=== PATIENT | female | born 1940 | race Two or more races ===

== ENCOUNTER 2024-12-01 08:50 | Inpatient (IN) | payer BC, OTHER ==
[~2024-12-01] VITALS: Ht 170.2 cm; Wt 64.4 kg
--- NOTE | 2024-12-01 09:24 | ED.PDOC ---
HPI (NEURO) HPI Comments 84 y/o F, presents to the ED for CC of right sided weakness. Patient states, she has been experiencing right sided weakness x5days. 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 Patient denies blurred vision, double vision, numbness, or difficulty speaking. No other symptoms or modifying factors are present at this time. Chief Complaint: Right Sided Weakness Time Seen by MD: 09:20 Reviewed Notes: Nurses Notes, Medications, Allergies Information Source: Patient Mode of Arrival: Wheelchair Severity: Moderate Headache Severity: None Timing: Days Duration: Since onset Prehospital treatment: None Weakness Location: (R) Sided Onset: At rest Circumstances: Spontaneous Symptoms: Weakness Before: Normal During: Awake After: Normal Mentation Modifying factors: Nothing Associated Signs and Symptoms: Weakness Past Medical History PAST MEDICAL HISTORY: Denies Surgical History: Denies all surgeries CAVITY PUMP OPERATOR History: Denies all CAVITY PUMP OPERATOR Hx Family History Family History: Unknown Social History Smoker: Cigarettes Alcohol: Denies ETOH Use Drugs: Denies Drug Use Lives In: Home Constitutional: reports: weakness; denies: chills, diaphoresis, fatigue, fever, malaise, sweats, others EENTM: denies: blurred vision, double vision, ear bleeding, ear discharge, ear drainage, ear pain, ear ringing, eye pain, eye redness, hearing loss, mouth pain, mouth swelling, nasal discharge, nose bleeding, nose congestion, nose pain, photophobia, tearing, throat pain, throat swelling, voice changes, others Respiratory: denies: cough, hemoptysis, orthopnea, SOB at rest, shortness of breath, SOB with excertion, stridor, wheezing, others Cardiovascular: denies: chest pain, dizzy spells, diaphoresis, Dyspnea on exertion, edema, irregular heart beat, left arm pain, lightheadedness, palpitations, PND, syncope, others Gastrointestinal: denies: abdomen distended, abdominal pain, blood streaked bowels, constipated, diarrhea, dysphagia, difficulty swallowing, hematemesis, melena, nausea, poor appetite, poor fluid intake, rectal bleeding, rectal pain, vomiting, others Genitourinary: denies: abnormal vagina bleeding, burning, dyspareunia, dysuria, flank pain, frequency, hematuria, incontinence, pain, , vagina discharge, urgency, others Neurological: denies: dizziness, fainting, headache, left sided numbness, left sided weakness, numbness, paresthesia, pre-existing deficit, right sided numbness, right sided weakness, seizure, speech problems, tingling, tremors, weakness, others Musculoskeletal: denies: back pain, gout, joint pain, joint swelling, muscle pain, muscle stiffness, neck pain, others Integumetry: denies: bruises, change in color, change in hair/nails, dryness, laceration, lesions, lumps, rash, wounds, others Allergic/Immunocompromised: denies: Difficulty Healing, Frequent Infections, Hives, Itching, others Hematologic/Lymphatic: denies: anemia, blood clots, easy bleeding, easy bruising, swollen glands, others Endocrine: denies: excessive hunger, excessive sweating, excessive thirst, excessive urination, flushing, intolerance to cold, intolerance to heat, unexplained weight gain, unexplained weight loss, others Psychiatric: denies: anxiety, bipolar disorder, depression, hopeless, panic disorder, schizophrenia, sleepless, suicidal, others All Other Systems: Reviewed and Negative Physical Exam General Appearance: Thin HEENT: Normal ENT Inspection, PERRL/EOMI, Other (No facial asymmetry) Neck: Limited Range of Motion, Non-Tender Respiratory: Lungs Clear, No Respiratory Distress, Normal Breath Sounds Cardiovascular: No Edema, No JVD, No Murmur, No Gallop, Normal Peripheral Pulses, Regular Rate/Rhythm Breast Exam: Deferred Gastrointestinal: No Organomegaly, Non Tender, No Pulsatile Mass, Normal Bowel Sounds, Soft Genitalia: Deferred Pelvic: Deferred Rectal: Deferred Extremities: Decreased range of motion, No calf tenderness, Normal capillary refill, Normal inspection, Non-tender, No pedal edema, Other (Patient feels weak to the left arm happened week ago and still the same) Neurologic: Alert, occupational rehabilitation aide II-XII nml as Tested, Motor Weakness, Normal Affect, Normal Mood, No Sensory Deficits Cerebellar Function: Normal Reflexes: Normal Skin: Dry, Normal Color, Warm Peripheral Pulses: 1+ carotid (R), 1+ carotid (L) Lymphatic: No Adenopathy EKG EKG : Pulse Rate (adult): 61 Hypertrophy: LAE, LVH Was a procedure done? Was a procedure done?: No Differential Diagnosis (SZ) Seizure: CVA/TIA, Hypocalcemia, Hypoglycemia, Hyponatremia, Mass Lesion CVA: TIA General Weakness: Dehydration, Dysrhythmia, Electrolyte imbalance, Hypog lycemia, Hypotension, Hypovolemia, Renal failure, TIA Headache: Migraine, N/A X-Ray, Labs, Meds, VS Vital Signs Date Time Temp Pulse Resp B/P (MAP) Pulse Ox O2 Delivery O2 Flow Rate FiO2 12/01/24 15:36 97.7 60 16 109/52 (71) 97 97.7 12/01/24 12:52 63 16 97 Room Air 12/01/24 12:52 97.8 63 16 176/48 (90) 97 97.8 12/01/24 10:53 61 12/01/24 10:52 97.9 65 16 152/60 (90) 98 97.9 12/01/24 09:12 61 12/01/24 09:07 97.8 79 18 151/71 (97) 97 97.8 Lab Test 12/01/24 11:47 12/01/24 10:44 12/01/24 09:02 Range/Units White Blood Count 2.6 L 4.4-10.8 10^3/uL Red Blood Count 4.14 4.0-5.20 10^6/uL Hemoglobin 13.6 12.2-16.2 g/dL Hematocrit 40.3 36.0-46.0 % Mean Corpuscular Volume 97.4 80.0-100.0 fL Mean Corpuscular Hemoglobin 32.8 H 28.0-32.0 pg Mean Corpuscular Hemoglobin Concent 33.7 32.0-36.0 g/dL Red Cell Distribution Width 13.9 11.8-14.3 % Platelet Count 135 L 140-450 10^3/uL Mean Platelet Volume 9.0 6.9-10.8 fL Neutrophils (%) (Auto) 62.1 37.0-80.0 % Lymphocytes (%) (Auto) 25.6 10.0-50.0 % Monocytes (%) (Auto) 10.4 0.0-12.0 % Eosinophils (%) (Auto) 1.3 0.0-7.0 % Basophils (%) (Auto) 0.6 0.0-2.0 % Neutrophils # (Auto) 1.6 1.6-8.6 10 ^3/uL Lymphocytes # (Auto) 0.7 0.4-5.4 10 ^3/uL Monocytes # (Auto) 0.3 0-1.3 10 ^3/uL Eosinophils # (Auto) 0 0-0.8 10 ^3/uL Basophils # (Auto) 0 0-0.2 10 ^3/uL Nucleated Red Blood Cells 0.3 % Prothrombin Time 10.4 9.3-11.8 sec Prothrombin Time INR 0.98 0.9-1.15 Activated Partial Thromboplast Time 35.9 H 24.5-34.5 SEC D-Dimer, Quantitative 1.14 H 0.0-0.49 mg/L FEU Sodium Level 142 136-145 mmol/L Potassium Level 3.9 3.5-5.1 mmol/L Chloride Level 109 H 98-107 mmol/L Carbon Dioxide Level 27 20-31 mmol/L Anion Gap 6 5-15 Blood Urea Nitrogen 9 9-23 mg/dL Creatinine 0.71 0.550-1.02 mg/dL Glomerular Filtration Rate Calc 83 >90 mL/min BUN/Creatinine Ratio 12.7 10.0-20.0 Serum Glucose 90 74-106 mg/dL Calcium Level 10.1 8.7-10.4 mg/dL Magnesium Level 2.0 1.6-2.6 mg/dL Total Bilirubin 0.5 0.2-1.0 mg/dL Aspartate Amino Transferase (AST) 24 13-40 U/L Alanine Aminotransferase (ALT) < 9 7-40 U/L Alkaline Phosphatase 73 46-116 U/L Troponin I High Sensitivity 10 </=34 ng/L Total Protein 7.3 5.7-8.2 g/dL Albumin 4.7 3.2-4.8 g/dL Urine Color Light-yellow Yellow Urine Clarity Clear Clear Urine pH 5.0 5.0-9.0 Urine Specific [place] 1.018 1.001-1.035 Urine Protein Negative Negative Urine Ketones Negative Negative Urine Blood 1+ H Negative /uL Urine Nitrite Negative Negative Urine Bilirubin Negative Negative Urine Urobilinogen Normal Negative mg/dL Urine Leukocyte Esterase 2+ Negative /uL Urine RBC 7 0 - 4 /hpf Urine Microscopic WBC 12 H 0-5 /HPF Urine Squamous Epithelial Cells Few <5 /hpf Urine Bacteria Few H None Seen /hpf Urine Mucus Few None Seen Urine Glucose Normal Normal mg/dL POC Glucose 100 70-106 mg/dl [place] [address] Ph: [phone] DIAGNOSTIC IMAGING Diagnostic Imaging Report : [id number] Signed PATIENT: ARNOLDO STERN ACCT: [id number] UNIT: [id number] : 1940 LOC: ER ROOM / BED: / AGE / SEX: 84 / F ADM STATUS: REG ER SERVICE 1030 ORDERING PHYSICIAN: AGUSTÍN HUGHES MD PROCEDURE(s): CXR2 - CHEST TWO VIEWS ROUTINE REASON: tia ORDER NUMBER(s): [id number], ACCESSION NUMBER(s): [id number] EXAM: XY CHEST TWO VIEWS ROUTINE CLINICAL HISTORY: Pain COMPARISON: None TECHNIQUE: Frontal and lateral view of the chest was obtained FINDINGS: Lines and Tubes: None Lungs: No focal consolidation. Pleura: No effusion. No pneumothorax. Cardiomediastinal contours: Unremarkable. Atherosclerotic vascular calcifications of the thoracic aorta are noted. Bones: No acute osseous abnormality. IMPRESSION: No acute cardiopulmonary disease. ATED BY: CLAYTON GARRISON MD DICTATED DATE/TIME: 12/01/24 105 SIGNED BY: CLAYTON GARRISON MD SIGNED DATE/TIME: 12/01/24 1058 CC: [place] [address] Ph: [phone] DIAGNOSTIC IMAGING Diagnostic Imaging Report : [id number] Signed PATIENT: ARNOLDO STERN ACCT: [id number] UNIT: [id number] : 1940 LOC: ER ROOM / BED: / AGE / SEX: 84 / F ADM STATUS: REG ER SERVICE 1030 ORDERING PHYSICIAN: AGUSTÍN HUGHES MD PROCEDURE(s): HWOCT - HEAD WITHOUT CONTRAST REASON: tia ORDER NUMBER(s): [id number], ACCESSION NUMBER(s): [id number] CT HEAD WITHOUT CONTRAST INDICATION: tia EXAM DATE: 12/01/2024 10:33 AM COMPARISON: None RADIATION DOSE: CTDIvol: 51.9 mGy, DLP: 919.18 mGy*cm PROCEDURE: CT scans of the head were obtained from the vertex to the skull base. Sagittal and coronal reconstructions were provided. All CT scans at this medical facility are performed using dose modulation techniques as appropriate to a performed exam including the following: Automated exposure control was utilized; adjustment of the MA and/or KV according to patient size; and use of iterative reconstruction technique. FINDINGS: Mild hypodensity in the left occipital/parietal lobe could be infarct. There is sulcal and ventricular prominence. The brain otherwise shows normal morphology and contreras-white matter differentiation, without intracranial hemorrhage, extra-axial fluid collection, mass effect or acute large vessel infarct. The ventricles are normal in size. The basal cisterns are patent. The skull and visible facial bones are intact. The paranasal sinuses, mastoid air cells and middle ear cavities are well-aerated. The soft tissues of the scalp are unremarkable. IMPRESSION: Mild hypodensity in the left occipital/parietal lobe could be subacute vs chronic infarct. Consider brain MRI for further evaluation. Critical Result: Infarct Findings discussed with beatrice giron at 12/01/2024 11:13 AM and acknowledged receipt and understanding of the findings. ATED BY: JUSTIN COLON MD DICTATED DATE/TIME: 12/01/24 1113 SIGNED BY: JUSTIN COLON MD SIGNED DATE/TIME: 12/01/24 1113 CC: X-Ray, Labs, Meds, VS Comment 84-year-old female presented to the emergency department because of right-sided weakness for the past five days and also confused Blood pressure 134/78 Chest x-ray is negative The CT of the head shows subacute fracture problem probably The EKG shows normal sinus rhythm at 61+ left atrial enlargement and left ventricular hypertrophy CBC 2600 with 62.1% and normal H&H Urine shows 1+ blood 2+ leukocyte and bacteria D-dimer slightly elevated 1.14 INR 0.96 CMP is normal Troponin 10 Magnesium 2.0 patient will be admitted to Dr. Arora Time of 1ST Reevaluation: 09:50 Reevaluation 1ST: Unchanged Patient Education/Counseling: Diagnosis, Treatment Family Education/Counseling: No Family Present Departure 1 Departure Time of Disposition: 14:30 Impression: Primary Impression: TIA (transient ischemic attack) Disposition: ADMITTED INPATIENT Admit to: Tele Condition: Serious Critical Care Note Critical Care Time?: No Stability Stability form required: No Heart Score Heart Score: Heart Score Response (Comments) Value History N/A 0 EKG N/A 0 Age N/A 0 Risk Factors N/A 0 Troponin N/A 0 Total 0 I personally scribed for AGUSTÍN HUGHES MD ([email or web address]) on 12/01/24 at 09:24. Electronically submitted by Dinorah Fitzgerald ([email or web address]). I personally scribed for AGUSTÍN HUGHES MD ([email or web address]) on 12/01/24 at 09:29. Electronically submitted by Dinorah Fitzgerald ([email or web address]). I personally scribed for AGUSTÍN HUGHES MD ([email or web address]) on 12/01/24 at 11:03. Electronically submitted by Dinorah Fitzgerald ([email or web address]). I personally scribed for AGUSTÍN HUGHES MD ([email or web address]) on 12/01/24 at 11:47. Electronically submitted by Dinorah Fitzgerald ([email or web address]). I personally scribed for AGUSTÍN HUGHES MD ([email or web address]) on 12/01/24 at 12:51. Electronically submitted by Dinorah Fitzgerald ([email or web address]). I personally scribed for AGUSTÍN HUGHES MD ([email or web address]) on 12/01/24 at 13:28. Electronically submitted by Dinorah Fitzgerald ([email or web address]). AGUSTÍN HUGHES MD Dec 01, 2024 09:24
--- NOTE | 2024-12-01 09:35 | ECG ---
[facility] Test Date: 2024-12-01 Test Time: 09:12:43 Pat Name: ARNOLDO STERN Department: ER Room: 0215T Gender: F [employer] Station Attendant: : 1940 Requested By: EMERGENCY EMERGENCY Order Number: [id number] Reading MD: Yo Webb Measurements Intervals [place] Rate: 61 P: 82 RI: 123 QRS: 31 QRSD: 82 T: 74 QT: 462 QTc: 466 Interpretive Statements Sinus rhythm Probable left atrial enlargement Probable LVH with secondary repol abnrm Baseline wander in lead(s) V1 Electronically Signed On 12-03-2024 10:21:27 PDT by Yo Webb Please click the below link to view image of tracing.
[2024-12-01] MEDS: SODIUM CHLORIDE 0.9% 1,000 ML IV ONE (10:30)
--- NOTE | 2024-12-01 11:01 | DVH ---
EXAM: XY CHEST TWO VIEWS ROUTINE CLINICAL HISTORY: Pain COMPARISON: None TECHNIQUE: Frontal and lateral view of the chest was obtained FINDINGS: Lines and Tubes: None Lungs: No focal consolidation. Pleura: No effusion. No pneumothorax. Cardiomediastinal contours: Unremarkable. Atherosclerotic vascular calcifications of the thoracic ao rta are noted. Bones: No acute osseous abnormality. IMPRESSION: No acute cardiopulmonary disease.
--- NOTE | 2024-12-01 11:16 | DVH ---
CT HEAD WITHOUT CONTRAST INDICATION: tia EXAM DATE: 12/01/2024 10:33 AM COMPARISON: None RADIATION DOSE: CTDIvol: 51.9 mGy, DLP: 919.18 mGy*cm PROCEDURE: CT scans of the head were obtained from the vertex to the skull base. Sagittal and coronal reconstructions were provided. All CT scans at this medical facility are performed using dose modulation techniques as appropriate t o a performed exam including the following: Automated exposure control was utilized; adjustment of th e MA and/or KV according to patient size; and use of iterative reconstruction technique. FINDINGS: Mild hypodensity in the left occipital/parietal lobe could be infarct. There is sulcal and ventricular prominence. The brain otherwise shows normal morphology and contreras-white matter differenti ation, without intracranial hemorrhage, extra-axial fluid collection, mass effect or acute large vess el infarct. The ventricles are normal in size. The basal cisterns are patent. The skull and visible f acial bones are intact. The paranasal sinuses, mastoid air cells and middle ear cavities are well-aer ated. The soft tissues of the scalp are unremarkable. IMPRESSION: Mild hypodensity in the left occipital/parietal lobe could be subacute vs chronic infarct. Consider b rain MRI for further evaluation. Critical Result: Infarct Findings discussed with beatrice giron at 12/01/2024 11:13 AM and acknowledged receipt and understa nding of the findings.
[2024-12-01 12:04] LABS: Hematocrit 40.3 % (36.0-46.0); Hemoglobin 13.6 g/dL (12.2-16.2); Mean Corpuscular Hemoglobin 32.8 pg (28.0-32.0); Mean Corpuscular Volume 97.4 fL (80.0-100.0); Nucleated Red Blood Cells % 0.3 %
[2024-12-01 12:14] LABS: Urine Protein, UAD Negative (Negative)
[2024-12-01 12:17] LABS: Alanine Aminotransferase < 9 U/L (7-40); Albumin 4.7 g/dL (3.2-4.8); Alkaline Phosphatase 73 U/L (46-116); Anion Gap 6 (5-15); BUN/Creatinine Ratio 12.7 (10.0-20.0); Bilirubin, Total 0.5 mg/dL (0.2-1.0); Blood Urea Nitrogen 9 mg/dL (9-23); Calcium 10.1 mg/dL (8.7-10.4); Carbon Dioxide 27 mmol/L (20-31); Chloride 109 mmol/L (98-107); Glucose 90 mg/dL (74-106); Magnesium 2.0 mg/dL (1.6-2.6); Potassium 3.9 mmol/L (3.5-5.1); Sodium 142 mmol/L (136-145); Total Protein 7.3 g/dL (5.7-8.2)
[2024-12-01 12:18] LABS: INR 0.98 (0.9-1.15); Partial Thromboplastin Time 35.9 SEC (24.5-34.5); Prothrombin Time 10.4 sec (9.3-11.8)
[2024-12-01] MEDS ORDERED: MORPHINE SULFATE INJ 2 MG/ml SYRG IV PRN ×2 (15:45)
[2024-12-01] MEDS ORDERED: HYDROcodone-ACET 5/325MG TAB PO PRN (15:45)
[2024-12-01] MEDS: SODIUM CHLORIDE 0.9% 1,000 ML IV SCH (15:45)
[2024-12-01] MEDS ORDERED: ACETAMINOPHEN 325 MG TAB PO PRN (15:45)
[2024-12-01] MEDS ORDERED: ONDANSETRON HCL 4 MG/2 ML VIAL IV PRN (15:45)
[2024-12-01] MEDS ORDERED: NITROGLYCERIN 0.4 MG SL TAB SL PRN (15:45)
[2024-12-01] MEDS: cefTRIAXone 1GM/50ML D5W 50 ML IV SCH (16:00)
[2024-12-01] MEDS ORDERED: IOHEXOL 350 MG/ML 100ML IJ ONE (16:26)
--- NOTE | 2024-12-01 17:18 | DVH ---
PROCEDURE: MRI BRAIN HEAD WO CONTRAST Indication: cva COMPARISON: CT head from today TECHNIQUE: Multiplanar multisequence images of the brain are obtained. FINDINGS: There is diffusion restriction within the subcortical left frontal, parietal simple and temporal lobe s. There is more pronounced diffusion restriction within the left parietal rocha radiata and finisher cold rolling ior temporal lobe. There are corresponding increased FLAIR / T2 changes. Moderate periventricular and subcortical white matter T2 and FLAIR hyperintense changes. There is no intracranial hemorrhage. No extra-axial fluid collection, mass effect or midline shift. The ventricles are midline and normal in size. The cisterns are patent. Normal intracranial flow voids are preserved. No abnormal susceptibili ty signal. Kkrh-ni-fyivdmva global cerebral volume loss. The sinuses and mastoids are well pneumatized. The visualized orbits are unremarkable. IMPRESSION: Acute infarction involving the left frontal, parietal , occipital and temporal lobes most pronounced within the left parietal lobe. Moderate chronic microvascular ischemic changes. Ibtd-lo-fnyevtfk global cerebral volume loss
[2024-12-01 17:51] VITALS: BP 189/89; PULSE 69; RESP 18; TEMP 97.5; O2SAT 98
[2024-12-01 18:01] VITALS: BP 189/89; PULSE 69; RESP 18; TEMP 97.5; O2SAT 98
[2024-12-01] MEDS ORDERED: CHOL20007 PO (18:48)
[2024-12-01] MEDS ORDERED: DORZ2SOL EACHEYE (18:48)
[2024-12-01] MEDS ORDERED: SIMV20TA20 PO (18:48)
[2024-12-01] MEDS ORDERED: LOSA-534 PO (18:48)
[2024-12-01] MEDS ORDERED: LATA0.008 EACHEYE (18:48)
[2024-12-01 20:00] VITALS: PULSE 97
--- NOTE | 2024-12-01 21:13 | DVH ---
US CAROTID DOPPLER CLINICAL INDICATION: cva TECHNIQUE: Multiple grayscale, color Doppler and spectral Doppler ultrasound images were obtained thr oughout both carotid systems. COMPARISON: None FINDINGS: RIGHT: CCA PSV: 65 cm/s ECA PSV: 86 cm/s ICA PSV: 87 cm/s ICA EDV: 32 cm/s ICA/CCA Ratio: 1.3 Vertebral artery: Patent, antegrade flow. Mild atherosclerotic plaque of the carotid bifurcation. No visible stenosis. Spectral analysis demons trates no hemodynamically significant CCA or ICA stenosis. LEFT: CCA PSV: 51 cm/s ECA PSV: 85 cm/s ICA PSV: 109 cm/s ICA EDV: 33 cm/s ICA/CCA Ratio: 2.1 Vertebral artery: Patent, antegrade flow. Mild atherosclerotic plaque of the carotid bifurcation. No visible stenosis. Spectral analysis demons trates no hemodynamically significant CCA or ICA stenosis. IMPRESSION: No evidence of hemodynamically significant CCA or ICA stenosis.
[2024-12-01 21:21] VITALS: BP 150/60; PULSE 70; RESP 18; TEMP 98.2; O2SAT 97
[2024-12-01] MEDS: ATORVASTATIN 20 MG TAB PO SCH (21:38)
[2024-12-02] VITALS (9 sets, daily range): BP systolic 116–174; BP diastolic 47–69; PULSE 51–79; RESP 16–22; TEMP 96.5–99; O2SAT 96–98
[2024-12-02] MEDS ORDERED: IOHEXOL 350 MG/ML 100ML IJ ONE (00:30)
--- NOTE | 2024-12-02 00:38 | DVHHP2 ---
JUANA QUINONEZ ROCK BREAKER 12/02/24 0038: History of Present Illness Reason for Visit: Right-sided weakness History of Present Illness 84-year-old female with past medical history of hypertension, high cholesterol presents with complaints of right-sided weakness over the previous 5 days. Patient is also endorsing facial numbness. At this time patient states symptoms have improved. At this time patient denies any fevers, chills, visual disturbance, headaches, shortness of breath, chest pain, nausea, vomiting, abdominal pain, dysuria. Cardiovascular: HTN, hyperipidemia Smoke: No ALCOHOL: none Drugs: None Lives: with Family Review of Systems Constitutional: Yes: Weakness; No: Fever, Chills, Sweats, Malaise, Other Eyes: No: Pain, Vision change, Conjunctivae inflammation, Eyelid inflammation, Other, Redness ENT: No: Ear pain, Ear discharge, Nose pain, Nose discharge, Nose congestion, Mouth pain, Mouth swelling, Throat pain, Throat swelling, Other Respiratory: No: Cough, Dry, Shortness of breath, SOB with excertion, Wheezing, Hemoptysis, Pleuritic Pain, Sputum, Wheezing, Other Cardiovascular: No: Chest Pain, Palpitations, Orthopnea, Paroxysmal Noc. Dyspnea, Edema, Lt Headedness, Other Genitourinary: No Dysuria, No Frequency, No Incontinence, No Hematuria, No Retention, No Other Skin: No: Rash, Lesions, Jaundice, Bruising, Other Neurological: Weakness, Numbness; No: Incoordination, Change in speech, Confusion, Seizures, Other Allergies: Coded Allergies: NO KNOWN ALLERGIES (Unverified , 12/01/24) Medications Current Medications Medications Dose Ordered Sig/Brett Route Start Time Stop Time Status Last Admin Dose Admin Sodium Chloride 1,000 ml @ 120 mls/hr Q8H20M IV 12/01/24 15:45 Acetaminophen/ Hydrocodone Bitart 1 tab Q4HP PRN PO 12/01/24 15:45 Ondansetron HCl 4 mg Q4HP PRN IV 12/01/24 15:45 Enoxaparin Sodium 40 mg DAILY SC 12/02/24 10:00 Acetaminophen 650 mg Q6HP PRN PO 12/01/24 15:45 Morphine Sulfate 2 mg Q4HPRN PRN IV 12/01/24 15:45 Nitroglycerin 0.4 mg Q5MINP PRN SL 12/01/24 15:45 Morphine Sulfate 2 mg Q30M PRN IV 12/01/24 15:45 Aspirin 81 mg DAILY PO 12/02/24 10:00 Atorvastatin Calcium 40 mg HS PO 12/01/24 22:00 12/01/24 21:38 40 MG Ceftriaxone Sodium 50 ml @ 100 mls/hr DAILY@09 IV 12/01/24 16:00 Exam Vital Signs Vital Signs Date Time Temp Pulse Resp B/P (MAP) Pulse Ox O2 Delivery O2 Flow Rate FiO2 12/01/24 21:21 98.2 70 18 150/60 (90) 97 98.2 12/01/24 20:00 Room Air* 0 21 General Appearance: Alert, Oriented X3, Cooperative, mild distress HEENT: Atraumatic, PERRLA, EOMI Respiratory: Clear to auscultation, Normal air movement Cardiovascular: Regular rate, Normal S1, Normal S2 Abdominal: Normal bowel sounds, Soft Extremities: No clubbing, No cyanosis, No edema, Normal pulses Skin: No rashes Neuro: Normal speech Psych/Mental Status: Mental status NL, Mood NL Labs/Xrays Labs Test 12/01/24 11:47 12/01/24 10:44 12/01/24 09:02 Range/Units White Blood Count 2.6 L 4.4-10.8 10^3/uL Red Blood Count 4.14 4.0-5.20 10^6/uL Hemoglobin 13.6 12.2-16.2 g/dL Hematocrit 40.3 36.0-46.0 % Mean Corpuscular Volume 97.4 80.0-100.0 fL Mean Corpuscular Hemoglobin 32.8 H 28.0-32.0 pg Mean Corpuscular Hemoglobin Concent 33.7 32.0-36.0 g/dL Red Cell Distribution Width 13.9 11.8-14.3 % Platelet Count 135 L 140-450 10^3/uL Mean Platelet Volume 9.0 6.9-10.8 fL Neutrophils (%) (Auto) 62.1 37.0-80.0 % Lymphocytes (%) (Auto) 25.6 10.0-50.0 % Monocytes (%) (Auto) 10.4 0.0-12.0 % Eosinophils (%) (Auto) 1.3 0.0-7.0 % Basophils (%) (Auto) 0.6 0.0-2.0 % Neutrophils # (Auto) 1.6 1.6-8.6 10 ^3/uL Lymphocytes # (Auto) 0.7 0.4-5.4 10 ^3/uL Monocytes # (Auto) 0.3 0-1.3 10 ^3/uL Eosinophils # (Auto) 0 0-0.8 10 ^3/uL Basophils # (Auto) 0 0-0.2 10 ^3/uL Nucleated Red Blood Cells 0.3 % Prothrombin Time 10.4 9.3-11.8 sec Prothrombin Time INR 0.98 0.9-1.15 Activated Partial Thromboplast Time 35.9 H 24.5-34.5 SEC D-Dimer, Quantitative 1.14 H 0.0-0.49 mg/L FEU Sodium Level 142 136-145 mmol/L Potassium Level 3.9 3.5-5.1 mmol/L Chloride Level 109 H 98-107 mmol/L Carbon Dioxide Level 27 20-31 mmol/L Anion Gap 6 5-15 Blood Urea Nitrogen 9 9-23 mg/dL Creatinine 0.71 0.550-1.02 mg/dL Glomerular Filtration Rate Calc 83 >90 mL/min BUN/Creatinine Ratio 12.7 10.0-20.0 Serum Glucose 90 74-106 mg/dL Calcium Level 10.1 8.7-10.4 mg/dL Magnesium Level 2.0 1.6-2.6 mg/dL Total Bilirubin 0.5 0.2-1.0 mg/dL Aspartate Amino Transferase (AST) 24 13-40 U/L Alanine Aminotransferase (ALT) < 9 7-40 U/L Alkaline Phosphatase 73 46-116 U/L Troponin I High Sensitivity 10 </=34 ng/L Total Protein 7.3 5.7-8.2 g/dL Albumin 4.7 3.2-4.8 g/dL Urine Color Light-yellow Yellow Urine Clarity Clear Clear Urine pH 5.0 5.0-9.0 Urine Specific [place] 1.018 1.001-1.035 Urine Protein Negative Negative Urine Ketones Negative Negative Urine Blood 1+ H Negative /uL Urine Nitrite Negative Negative Urine Bilirubin Negative Negative Urine Urobilinogen Normal Negative mg/dL Urine Leukocyte Esterase 2+ Negative /uL Urine RBC 7 0 - 4 /hpf Urine Microscopic WBC 12 H 0-5 /HPF Urine Squamous Epithelial Cells Few <5 /hpf Urine Bacteria Few H None Seen /hpf Urine Mucus Few None Seen Urine Glucose Normal Normal mg/dL POC Glucose 100 70-106 mg/dl Assessment/Plan Assessment/Plan CVA Elevated D dimer UTI with hematuria Hypertension Plan Admit telemetry Neurology consult. MRI brain. ASA, statin physical therapy evaluation. Occupational therapy evaluation. Cardiology consult. Echocardiogram. CTA chest rule out PE. IVF, IV ABX GI ppx Pepcid / dot ppx lovenox Plan discussed with: Patient Date of Service: Dec 02, 2024 Billing Provider: SYMONE MUHAMMAD MD Common Visit Codes: NOT BILLABLE SYMONE MUHAMMAD MD 12/02/24 1425: Review of Systems Allergies: Coded Allergies: NO KNOWN ALLERGIES (Unverified , 12/01/24) Additional Comments Additional Comments Additional Comments 84-year-old female with a known history of hypertension, dyslipidemia who initially presented to the hospital with a right-sided weakness slurred speech and loss of balance for last five days found to have 1. Acute multi-infarct stroke with slurred speech and loss of balance 2. Urinary tract infection 3. Hypertension 4. Dyslipidemia 5. Elevated D-dimer ruled out pulmonary embolism -aspirin, statin, 2D echo cardiology consult neurology consultation. -we will add Plavix on discharge. JUANA QUINONEZ NP Dec 02, 2024 00:38 SYMONE MUHAMMAD MD Dec 02, 2024 14:25
--- NOTE | 2024-12-02 02:18 | DVH ---
INDICATION: elevated D dimers rule out PE TECHNIQUE: Multidetector CTA of the chest was performed of the chest with 100 cc of intravenous contr ast. PULMONARY ANGIOGRAPHY PROTOCOL was utilized using a bolus-tracking technique centered on the spencer n pulmonary artery. Axial, coronal and sagittal multiplanar and MIP reformats were performed. Radiation Dose Information: CT Dose: CTDI volume is 8.4 mGy. Dose-length product is 694 mGy*cm The dose indicators for CT are the volume Computed Tomography (CT) Dose Index (CTDIvol) and the Dose Length Product (DLP), and are measured in units of mGy and mGy-cm, respectively. These indicators are not patient dose, but values generated from the CT scanner acquisition factors. The report includes radiation exposure data for exposures received during this examination. Comparison: Chest x-ray 12/01/2024 Findings: Cystic nodule of the right thyroid gland. Pulmonary artery appears prominent without focal filling de fect to suggest pulmonary embolus. The thoracic aorta appears normal in caliber and contour. No siza ble pericardial or pleural effusion. Mild emphysematous changes with multiple scattered bilateral 1-2 mm pulmonary nodules. No suspicious nodule. Visualized portions of the upper abdomen demonstrates prominence of the pancreatic duct measuring 3-4 mm, incompletely visualized. IMPRESSION: 1. No evidence of pulmonary embolus. Prominent pulmonary arteries May suggest a degree of pulmonary a rterial hypertension. 2. Mild centrilobular emphysema with multiple bilateral 1-2 mm pulmonary nodules. 3. Prominent pancreatic duct, incompletely imaged and nonspecific. Fleischner Society pulmonary nodule recommendations (2017): Multiple solid nodules <6 mm Low-risk patients: no routine follow-up required High-risk patients: optional CT at 12 months These recommendations do not necessarily apply to women, patients with immunosuppression or a prior history of cancer, patients with multiple nodules that are suspicious for metastasis or infection, or patients with mediastinal lymphadenopathy or pleural effusion in whom cancer is strongly suspected.
[2024-12-02 06:58] LABS: Potassium 3.6 mmol/L (3.5-5.1); Sodium 141 mmol/L (136-145)
[2024-12-02 06:59] LABS: Anion Gap 6 (5-15); Carbon Dioxide 25 mmol/L (20-31)
[2024-12-02 07:00] LABS: Calcium 9.4 mg/dL (8.7-10.4)
[2024-12-02 07:04] LABS: Glucose 79 mg/dL (74-106)
[2024-12-02 07:05] LABS: BUN/Creatinine Ratio 13.6 (10.0-20.0); Blood Urea Nitrogen 8 mg/dL (9-23); Chloride 110 mmol/L (98-107)
[2024-12-02] MEDS: ENOXAPARIN SOD 40 MG/0.4 ML SYRINGE SC SCH (09:59)
--- NOTE | 2024-12-02 14:32 | DVHSR ---
APPROVED REPORT EXAM: Two-dimensional and M-mode echocardiogram with Doppler and color Doppler. Blood Pressure: 146/55 mmHg INDICATION CVA RISK FACTORS Height: 67, Weight: 141 DIMENSIONS LVDd4.9 (3.8-5.7cm)LA (2D)4.2 (1.9-4.0cm)Aortic Root3.5 (2.0-3.7cm) LVDs3.2 (2.5-4.0cm)LA (MM) (1.9-4.0cm)Aortic Cusp Exc1.3 (1.5-2.0cm) EF (%) 64.0 (55-70%)Rt. Atrium3.5 (1.9-4.0cm)Asc. Aorta cm Mitral Valve MitralMitral Stenosis E wave0.66m/sMV Mean GR.mmHg A wave0.59m/sMV Peak GR.71mmHg E/A ratio1.12D MVAcm2 DECEL [id number] 1/2 [id number] IVRTmsDop MVA2.38cm2 Aortic Valve Aortic ValveAortic Stenosis V11.23m/Orestes Mean GR.3mmHg V21.28m/Orestes Peak GR.7mmHg LVOT Diameter1.9 (1.8-2.4cm)Doppler AVA2.72cm2 Tricuspid Valve TR Velocity2.82m/s [id number] Conclusion lvef 55% moderaet LVH aortic sclerosis biatrial enlargement
--- NOTE | 2024-12-02 18:12 | DVHINCON2 ---
Date of service: Dec 02, 2024 History of Present Illness 84-year-old female with past medical history of hypertension, high cholesterol presents with complaints of right-sided weakness over the previous 5 days. P atient is also endorsing facial numbness. At this time patient states symptoms have improved. At this time patient denies any fevers, chills, visual disturbance, headaches, shortness of breath, chest pain, nausea, vomiting, abdominal pain, dysuria. Cardiovascular: HTN, hyperipidemia Smoke: No ALCOHOL: none Drugs: None Lives: with Family Past Medical History reviewed Family History: FH: cancer G8 MOTHER G8 FATHER Allergies: Coded Allergies: NO KNOWN ALLERGIES (Unverified , 12/01/24) Home Meds Reported Medications Simvastatin (Simvastatin) 20 Mg Tab, 20 MG PO HS for 30 Days 12/01/24 Losartan Potassium (Losartan Potassium) 50 Mg Tab, 50 MG PO DAILY for 30 Days, MG 12/01/24 Cholecalciferol (VITAMIN D3) 2,000 Unit Tab, 5000 UNIT PO DAILY, TAB 12/01/24 Dorzolamide Hydrochloride (Dorzolamide HCl) 2 % Alexandrea, 1 % EACHEYE BID, ML 12/01/24 Latanoprost (LATANOPROST) 0.005 % Alexandrea, 1 DROP EACHEYE QPM, #7.5 ML 3 Refills 12/01/24 Current Medications Current Medications Medications (Trade) Dose Ordered Sig/Brett Route PRN Reason Start Time Stop Time Status Last Admin Enoxaparin Sodium (Lovenox) 40 mg DAILY SC 12/02/24 10:00 12/02/24 09:59 Aspirin 81 mg DAILY PO 12/02/24 10:00 12/02/24 09:59 Atorvastatin Calcium (Lipitor) 40 mg HS PO 12/01/24 22:00 12/01/24 21:38 Review of Systems 10 pt ros otherwise negative Vital Signs Vital Signs Date Time Temp Pulse Resp B/P (MAP) Pulse Ox O2 Delivery O2 Flow Rate FiO2 12/02/24 16:47 99.0 66 17 116/56 (76) 96 99.0 12/02/24 08:00 Room Air* 0 21 Physical Exam nad s1 s2 rrr ctab soft nt/nd no edema Labs/Diagnostic Data Labs Test 12/02/24 05:55 12/01/24 11:47 12/01/24 10:44 12/01/24 09:02 Range/Units Sodium Level 141 136-145 mmol/L Potassium Level 3.6 3.5-5.1 mmol/L Chloride Level 110 H 98-107 mmol/L Carbon Dioxide Level 25 20-31 mmol/L Anion Gap 6 5-15 Blood Urea Nitrogen 8 L 9-23 mg/dL Creatinine 0.59 0.550-1.02 mg/dL Glomerular Filtration Rate Calc 88 >90 mL/min BUN/Creatinine Ratio 13.6 10.0-20.0 Serum Glucose 79 74-106 mg/dL Calcium Level 9.4 8.7-10.4 mg/dL White Blood Count 2.6 L 4.4-10.8 10^3/uL Red Blood Count 4.14 4.0-5.20 10^6/uL Hemoglobin 13.6 12.2-16.2 g/dL Hematocrit 40.3 36.0-46.0 % Mean Corpuscular Volume 97.4 80.0-100.0 fL Mean Corpuscular Hemoglobin 32.8 H 28.0-32.0 pg Mean Corpuscular Hemoglobin Concent 33.7 32.0-36.0 g/dL Red Cell Distribution Width 13.9 11.8-14.3 % Platelet Count 135 L 140-450 10^3/uL Mean Platelet Volume 9.0 6.9-10.8 fL Neutrophils (%) (Auto) 62.1 37.0-80.0 % Lymphocytes (%) (Auto) 25.6 10.0-50.0 % Monocytes (%) (Auto) 10.4 0.0-12.0 % Eosinophils (%) (Auto) 1.3 0.0-7.0 % Basophils (%) (Auto) 0.6 0.0-2.0 % Neutrophils # (Auto) 1.6 1.6-8.6 10 ^3/uL Lymphocytes # (Auto) 0.7 0.4-5.4 10 ^3/uL Monocytes # (Auto) 0.3 0-1.3 10 ^3/uL Eosinophils # (Auto) 0 0-0.8 10 ^3/uL Basophils # (Auto) 0 0-0.2 10 ^3/uL Nucleated Red Blood Cells 0.3 % Prothrombin Time 10.4 9.3-11.8 sec Prothrombin Time INR 0.98 0.9-1.15 Activated Partial Thromboplast Time 35.9 H 24.5-34.5 SEC D-Dimer, Quantitative 1.14 H 0.0-0.49 mg/L FEU Magnesium Level 2.0 1.6-2.6 mg/dL Total Bilirubin 0.5 0.2-1.0 mg/dL Aspartate Amino Transferase (AST) 24 13-40 U/L Alanine Aminotransferase (ALT) < 9 7-40 U/L Alkaline Phosphatase 73 46-116 U/L Troponin I High Sensitivity 10 </=34 ng/L Total Protein 7.3 5.7-8.2 g/dL Albumin 4.7 3.2-4.8 g/dL Urine Color Light-yellow Yellow Urine Clarity Clear Clear Urine pH 5.0 5.0-9.0 Urine Specific [place] 1.018 1.001-1.035 Urine Protein Negative Negative Urine Ketones Negative Negative Urine Blood 1+ H Negative /uL Urine Nitrite Negative Negative Urine Bilirubin Negative Negative Urine Urobilinogen Normal Negative mg/dL Urine Leukocyte Esterase 2+ Negative /uL Urine RBC 7 0 - 4 /hpf Urine Microscopic WBC 12 H 0-5 /HPF Urine Squamous Epithelial Cells Few <5 /hpf Urine Bacteria Few H None Seen /hpf Urine Mucus Few None Seen Urine Glucose Normal Normal mg/dL POC Glucose 100 70-106 mg/dl Assessment acute multifocal cva htn hl frailty Plan/Recommendation echo shows lvef 55% ecg shows SR cont tele BRANDON requested per neuro r/o cardioembolic source, will proceed , informed consent discussed with patient asa, statin outpt holter Plan discussed with: Patient BETTINA CH MD Dec 02, 2024 18:12
[2024-12-03 01:00] VITALS: BP 139/42; PULSE 58; RESP 20; TEMP 97.6; O2SAT 97
[2024-12-03 05:00] VITALS: BP 129/39; PULSE 57; RESP 18; TEMP 97.6; O2SAT 96
[2024-12-03 08:00] VITALS: PULSE 54; PULSE 64; RESP 22; O2SAT 98
--- NOTE | 2024-12-03 08:05 | DVHINCON2 ---
Neuro Consultation Date of Consultation Date: 12/03/24 History of Present Illness History of Present Illness: Lisa Lucas is a 84 year old female with HTN, HLD, tobacco abuse (x1 cig/week) who presents with speech changes. Patient notes she had acute onset of speech changes. She felt her RUE was weak but that has improved. She notes recent uterine cancer, s/p hysterctomy, chemotherapy, radiation therapy. Family History Patient History: FH: cancer G8 MOTHER G8 FATHER Allergies and Medications Allergies: Coded Allergies: NO KNOWN ALLERGIES (Unverified , 12/01/24) Home Meds: Reported Medications Simvastatin (Simvastatin) 20 Mg Tab, 20 MG PO HS for 30 Days 12/01/24 Losartan Potassium (Losartan Potassium) 50 Mg Tab, 50 MG PO DAILY for 30 Days, MG 12/01/24 Cholecalciferol (VITAMIN D3) 2,000 Unit Tab, 5000 UNIT PO DAILY, TAB 12/01/24 Dorzolamide Hydrochloride (Dorzolamide HCl) 2 % Alexandrea, 1 % EACHEYE BID, ML 12/01/24 Latanoprost (LATANOPROST) 0.005 % Alexandrea, 1 DROP EACHEYE QPM, #7.5 ML 3 Refills 12/01/24 Current Medications: Current Medications Medications (Trade) Dose Ordered Sig/Brett Route PRN Reason Start Time Stop Time Status Last Admin Enoxaparin Sodium (Lovenox) 40 mg DAILY SC 12/02/24 10:00 12/02/24 09:59 Aspirin 81 mg DAILY PO 12/02/24 10:00 12/02/24 09:59 General Examination Last Vital sign Vital Signs Date Time Temp Pulse Resp B/P (MAP) Pulse Ox O2 Delivery O2 Flow Rate FiO2 12/03/24 05:00 97.6 57 18 129/39 (69) 96 97.6 12/02/24 20:00 Room Air* 0 21 General Exam: General Examination: General: No apparent distress, appears comfortable. Cooperative HEENT: Normocephalic, atraumatic. Supple neck. No oropharynx lesion or exudate noted. Extremities: No noted edema or cyanosis Skin: No noted rashes or jaundice. Neuro Exam: Neurological Examination: Mental Status: Alert and oriented to person, place, and time. Mild dysarthria. Fluent spech, intact namging, repeition Cranial Nerves: Pupils equally round and reactive to light. Visual gomez intact. No dysconjugate gaze. Extraocular movements were intact. No ptosis on primary gaze or fatiguable ptosis was noted. Sensation intact in V1-V3 bilaterally. No facial asymmetry with symmetrical brow raise, smile, and puffing out cheeks. Hearing intact to finger rub bilaterally. Tongue midline with symmetrical palate elevation. No tongue atrophy or fasciculations noted. Intact shoulder shrug. Motor examination: Normal bulk and tone in the bilateral upper and lower e xtremities. No abnormal movements appreciated. Upper Extremities (Right/Left) Infraspinatus 5/5 Deltoid 5/5 Biceps 5/5 Triceps 5/5 Interosseous 5/5 ABP 5/5 Lower Extremities (Right/Left) Iliopsoas 5/5 Quadriceps 5/5 Hamstrings 5/5 Tibialis anterior 5/5 Gastrocnemius 5/5 Reflexes: Jaw Jerk absent Pectoralis absent/absent Biceps 2/2 Triceps 2/2 Brachioradialis 2/2 Patellar 2/2 Ankle 2/2 Babinski's Down/Down Sensory: Upper Extremity - Intact to light touch, Lower Extremity - Intact to light touch, Coordination: Intact finger to nose and [id number] bilaterally. No dysmetria noted. Negative Romberg's. Labs: Laboratory Tests Test 12/01/24 09:02 12/01/24 10:44 12/01/24 11:47 12/02/24 05:55 Range/Units POC Glucose 100 70-106 mg/dl Urine Color Light-yellow Yellow Urine Clarity Clear Clear Urine pH 5.0 5.0-9.0 Urine Specific [place] 1.018 1.001-1.035 Urine Protein Negative Negative Urine Ketones Negative Negative Urine Blood 1+ H Negative /uL Urine Nitrite Negative Negative Urine Bilirubin Negative Negative Urine Urobilinogen Normal Negative mg/dL Urine Leukocyte Esterase 2+ Negative /uL Urine RBC 7 0 - 4 /hpf Urine Microscopic WBC 12 H 0-5 /HPF Urine Squamous Epithelial Cells Few <5 /hpf Urine Bacteria Few H None Seen /hpf Urine Mucus Few None Seen Urine Glucose Normal Normal mg/dL White Blood Count 2.6 L 4.4-10.8 10^3/uL Red Blood Count 4.14 4.0-5.20 10^6/uL Hemoglobin 13.6 12.2-16.2 g/dL Hematocrit 40.3 36.0-46.0 % Mean Corpuscular Volume 97.4 80.0-100.0 fL Mean Corpuscular Hemoglobin 32.8 H 28.0-32.0 pg Mean Corpuscular Hemoglobin Concent 33.7 32.0-36.0 g/dL Red Cell Distribution Width 13.9 11.8-14.3 % Platelet Count 135 L 140-450 10^3/uL Mean Platelet Volume 9.0 6.9-10.8 fL Neutrophils (%) (Auto) 62.1 37.0-80.0 % Lymphocytes (%) (Auto) 25.6 10.0-50.0 % Monocytes (%) (Auto) 10.4 0.0-12.0 % Eosinophils (%) (Auto) 1.3 0.0-7.0 % Basophils (%) (Auto) 0.6 0.0-2.0 % Neutrophils # (Auto) 1.6 1.6-8.6 10 ^3/uL Lymphocytes # (Auto) 0.7 0.4-5.4 10 ^3/uL Monocytes # (Auto) 0.3 0-1.3 10 ^3/uL Eosinophils # (Auto) 0 0-0.8 10 ^3/uL Basophils # (Auto) 0 0-0.2 10 ^3/uL Nucleated Red Blood Cells 0.3 % Prothrombin Time 10.4 9.3-11.8 sec Prothrombin Time INR 0.98 0.9-1.15 Activated Partial Thromboplast Time 35.9 H 24.5-34.5 SEC D-Dimer, Quantitative 1.14 H 0.0-0.49 mg/L FEU Sodium Level 142 141 136-145 mmol/L Potassium Level 3.9 3.6 3.5-5.1 mmol/L Chloride Level 109 H 110 H 98-107 mmol/L Carbon Dioxide Level 27 25 20-31 mmol/L Anion Gap 6 6 5-15 Blood Urea Nitrogen 9 8 L 9-23 mg/dL Creatinine 0.71 0.59 0.550-1.02 mg/dL Glomerular Filtration Rate Calc 83 88 >90 mL/min BUN/Creatinine Ratio 12.7 13.6 10.0-20.0 Serum Glucose 90 79 74-106 mg/dL Calcium Level 10.1 9.4 8.7-10.4 mg/dL Magnesium Level 2.0 1.6-2.6 mg/dL Total Bilirubin 0.5 0.2-1.0 mg/dL Aspartate Amino Transferase (AST) 24 13-40 U/L Alanine Aminotransferase (ALT) < 9 7-40 U/L Alkaline Phosphatase 73 46-116 U/L Troponin I High Sensitivity 10 </=34 ng/L Total Protein 7.3 5.7-8.2 g/dL Albumin 4.7 3.2-4.8 g/dL Assessment/Plan 1. 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 History of HTN, HLD, smoking (x 1 cigarette/week), uterine cancer. Negative carotid dopplers - HgA1C, Lipid Panel - Start ASA 81mg + Plavix 75mg daily x3 weeks then ASA 81mg daily only - Atorvastatin 40mg qhs (if LDL < 70 then may start Atorvastatin 80mg qhs) - PT/OT - Stop smoking - Keep SBP < 140, LDL < 70, HGA1C <6% No f/u needed Plan discussed with: Patient KIMBERLI TORRE MD Dec 03, 2024 08:04
[2024-12-03 09:00] VITALS: BP 157/68; PULSE 66; RESP 16; TEMP 97.7; O2SAT 95
[2024-12-03] MEDS: CLOPIDOGREL BISULFATE 75 MG TAB PO SCH (10:22)
[2024-12-03 10:41] LABS: Triglycerides 62 mg/dL (< 150)
[2024-12-03 10:43] LABS: Cholesterol 154 mg/dL (< 200); HDL Cholesterol 62 mg/dL (40-59)
[2024-12-03 13:00] VITALS: BP 132/61; PULSE 61; RESP 17; TEMP 99.1; O2SAT 96
[2024-12-03] MEDS ORDERED: ATOR20TA50 PO (13:54)
[2024-12-03] MEDS ORDERED: CLOP75TA70 PO (13:54)
[2024-12-03] MEDS ORDERED: ASPI-325 PO (13:54)
--- NOTE | 2024-12-03 13:58 | DVHDS2 ---
Discharge Summary Date of Admission Dec 01, 2024 at 15:44 Date of Discharge: Dec 03, 2024 Labs/Diagnostic Data: Laboratory Results Test 12/03/24 09:33 12/02/24 05:55 12/01/24 11:47 12/01/24 10:44 Hemoglobin A1c 5.0 % A1C (<5.7) Triglycerides Level 62 mg/dL (< 150) Cholesterol Level 154 mg/dL (< 200) LDL Cholesterol 74 mg/dL (< 100) HDL Cholesterol 62 mg/dL (40-59) Sodium Level 141 mmol/L (136-145) Potassium Level 3.6 mmol/L (3.5-5.1) Chloride Level 110 mmol/L (98-107) Carbon Dioxide Level 25 mmol/L (20-31) Anion Gap 6 (5-15) Blood Urea Nitrogen 8 mg/dL (9-23) Creatinine 0.59 mg/dL (0.550-1.02) Glomerular Filtration Rate Calc 88 mL/min (>90) BUN/Creatinine Ratio 13.6 (10.0-20.0) Serum Glucose 79 mg/dL (74-106) Calcium Level 9.4 mg/dL (8.7-10.4) White Blood Count 2.6 10^3/uL (4.4-10.8) Red Blood Count 4.14 10^6/uL (4.0-5.20) Hemoglobin 13.6 g/dL (12.2-16.2) Hematocrit 40.3 % (36.0-46.0) Mean Corpuscular Volume 97.4 fL (80.0-100.0) Mean Corpuscular Hemoglobin 32.8 pg (28.0-32.0) Mean Corpuscular Hemoglobin Concent 33.7 g/dL (32.0-36.0) Red Cell Distribution Width 13.9 % (11.8-14.3) Platelet Count 135 10^3/uL (140-450) Mean Platelet Volume 9.0 fL (6.9-10.8) Neutrophils (%) (Auto) 62.1 % (37.0-80.0) Lymphocytes (%) (Auto) 25.6 % (10.0-50.0) Monocytes (%) (Auto) 10.4 % (0.0-12.0) Eosinophils (%) (Auto) 1.3 % (0.0-7.0) Basophils (%) (Auto) 0.6 % (0.0-2.0) Neutrophils # (Auto) 1.6 10 ^3/uL (1.6-8.6) Lymphocytes # (Auto) 0.7 10 ^3/uL (0.4-5.4) Monocytes # (Auto) 0.3 10 ^3/uL (0-1.3) Eosinophils # (Auto) 0 10 ^3/uL (0-0.8) Basophils # (Auto) 0 10 ^3/uL (0-0.2) Nucleated Red Blood Cells 0.3 % Prothrombin Time 10.4 sec (9.3-11.8) Prothrombin Time INR 0.98 (0.9-1.15) Activated Partial Thromboplast Time 35.9 SEC (24.5-34.5) D-Dimer, Quantitative 1.14 mg/L FEU (0.0-0.49) Magnesium Level 2.0 mg/dL (1.6-2.6) Total Bilirubin 0.5 mg/dL (0.2-1.0) Aspartate Amino Transferase (AST) 24 U/L (13-40) Alanine Aminotransferase (ALT) < 9 U/L (7-40) Alkaline Phosphatase 73 U/L (46-116) Troponin I High Sensitivity 10 ng/L (</=34) Total Protein 7.3 g/dL (5.7-8.2) Albumin 4.7 g/dL (3.2-4.8) Urine Color Light-yellow (Yellow) Urine Clarity Clear (Clear) Urine pH 5.0 (5.0-9.0) Urine Specific [place] 1.018 (1.001-1.035) Urine Protein Negative (Negative) Urine Ketones Negative (Negative) Urine Blood 1+ /uL (Negative) Urine Nitrite Negative (Negative) Urine Bilirubin Negative (Negative) Urine Urobilinogen Normal mg/dL (Negative) Urine Leukocyte Esterase 2+ /uL (Negative) Urine RBC 7 /hpf (0 - 4) Urine Microscopic WBC 12 /HPF (0-5) Urine Squamous Epithelial Cells Few /hpf (<5) Urine Bacteria Few /hpf (None Seen) Urine Mucus Few (None Seen) Urine Glucose Normal mg/dL (Normal) Test 12/01/24 09:02 POC Glucose 100 mg/dl (70-106) Other Laboratory Tests 12/02/24 05:55 12/01/24 11:47 Brief Hx & Hospital Course: 84-year-old female with a known history of hypertension, dyslipidemia who initially presented to the hospital with a right-sided weakness slurred speech and loss of balance for last five days found to have acute CVA in multiple lobes. Patient was found to have thrombotic stroke rather than embolic stroke. 2D echo was done . Patient was seen by Cardiology as well as a Neurology. Patient's UTI was treated. Patient has had elevated D-dimer ruled out pulmonary embolism. Patient is being discharged under stable condition on aspirin statin and Plavix and one antibiotic for three days. Condition at Discharge: Stable Final Diagnosis/Problems List 84-year-old female with a known history of hypertension, dyslipidemia who initially presented to the hospital with a right-sided weakness slurred speech and loss of balance for last five days found to have 1. Acute thrombotic CVA with slurred speech and loss of balance, improved 2. Urinary tract infection 3. Hypertension 4. Dyslipidemia 5. Elevated D-dimer ruled out pulmonary embolism Discharge Disposition: Home with Health Services SNF Discharge Will this Physician continue t: No Discharge Instruct/Medications Diet: Cardiac 2g Na,low cholest Activity: No Restrictions, As Tolerated Follow Up/Referral: Follow up with the PCP in 1-2 weeks , outpatient CT chest with the contrast in one month to make sure pulmonary nodules are not metastatic as patient does have known history of uterine cancer in the past. Follow up with the Neurology in 1-2 weeks. Medications: Aspirin statin Plavix only for 21 days Scheduled Aspirin (Aspirin Low Dose), 81 MG PO DAILY Atorvastatin Calcium (Atorvastatin Calcium), 40 MG PO HS Cholecalciferol (Vitamin D3), 5,000 UNIT PO DAILY, (Reported) Clopidogrel Bisulfate (Clopidogrel), 75 MG PO DAILY Dorzolamide Hydrochloride (Dorzolamide HCl), 1 % EACHEYE BID, (Reported) Latanoprost (Latanoprost), 1 DROP EACHEYE QPM, (Reported) Losartan Potassium (Losartan Potassium), 50 MG PO DAILY, (Reported) Discontinued Medications Simvastatin (Simvastatin), 20 MG PO HS, (Reported) Discharge Statement: "Patient was advised to return to the ER or call 911 if any headaches, dizziness, shortness of breath, chest pain, abdominal pain, bleeding, fevers, or worsening of medical condition. Patient was counseled about treatment plan, medications, possible side effects, patientverbalized understanding. All questions were answered to the best of my ability. This discharge took greater then 30 minutes in planning, reviewing documentation, counseling the patient, and discussing with other team members." ASSESSMENT ASSESSMENT Assessment 84-year-old female with a known history of hypertension, dyslipidemia who initially presented to the hospital with a right-sided weakness slurred speech and loss of balance for last five days found to have 1. Acute thrombotic CVA with slurred speech and loss of balance, improved 2. Urinary tract infection 3. Hypertension 4. Dyslipidemia 5. Elevated D-dimer ruled out pulmonary embolism Date of Service: Dec 03, 2024 Billing Provider: SYMONE MUHAMMAD MD Common Visit Codes: NOT BILLABLE SYMONE MUHAMMAD MD Dec 03, 2024 13:58
[2024-12-03 14:36] VITALS: BP 132/61; PULSE 61; RESP 17; TEMP 99.1; O2SAT 96
== END 2024-12-03 16:15 | disposition home or self-care (01) | DRG 65 ==
LOC: ER 08:50 → OVERFLOW 15:44 → TELE-CENTR 17:48
PROVIDERS: ADMIT Internal Medicine; ATTEND Internal Medicine
DX: I63.39 Cerebral infarction due to thrombosis of other cerebral artery (principal); N39.0 Urinary tract infection, site not specified; I10 Essential (primary) hypertension; R54 Age-related physical debility; F17.210 Nicotine dependence, cigarettes, uncomplicated; E78.00 Pure hypercholesterolemia, unspecified; R31.9 Hematuria, unspecified; Z51.11 Encounter for antineoplastic chemotherapy; Z80.8 Family history of malignant neoplasm of other organs or systems; Z85.42 Personal history of malignant neoplasm of other parts of uterus; Z79.82 Long term (current) use of aspirin; Z79.02 Long term (current) use of antithrombotics/antiplatelets
CPT/HCPCS: 36415; 70450; 70551; 71046; 71275; 80048; 80053; 80061; 81001; 82962; 83036; 83735; 84484; 85025; 85379; 85610; 85730; 93005; 93306; 93886; 97110; 97116; 97163; G0378